=== PATIENT | male | born 1995 | race Caucasian/White ===

== ENCOUNTER 2017-03-25 14:39 | Emergency (ER) | payer SELFPAY ==
[~2017-03-25] VITALS: Ht 193 cm; Wt 95.5 kg
[~2017-03-25 14:39] MED LIST: BACTDS PO; IBUP-1542 PO
[2017-03-25 14:42] VITALS: Ht 193 cm; Wt 95.5 kg
== END 2017-03-25 16:10 | disposition left against medical advice (07) ==
LOC: FTE 14:39
DX: Z53.21 Procedure and treatment not carried out due to patient leaving prior to being seen by health care provider (principal)

== ENCOUNTER 2017-10-18 14:26 | Emergency (ER) | END 2017-10-18 14:42 | disposition home or self-care (01) ==